=== PATIENT | male | born 1935 | race Caucasian/White ===

== ENCOUNTER 2021-04-13 15:13 | Emergency (ER) | payer MEDICARE ==
[2021-04-13] MEDS ORDERED: Bacitracin 1 PK ONE (15:47)
== END 2021-04-13 16:02 | disposition home or self-care (01) ==
LOC: CSHERS 15:13
DX: S51.811A Laceration without foreign body of right forearm, initial encounter (principal); W26.8XXA Contact with other sharp object(s), not elsewhere classified, initial encounter; I10 Essential (primary) hypertension; I25.10 Atherosclerotic heart disease of native coronary artery without angina pectoris; E78.5 Hyperlipidemia, unspecified
CPT/HCPCS: 99282